=== PATIENT | male | born 1985 | race Caucasian/White ===

== ENCOUNTER 2022-07-01 06:01 | Emergency (ER) | payer SELFPAY ==
[~2022-07-01] VITALS: Ht 167.6 cm; Wt 66.0 kg
[2022-07-01] MEDS ORDERED: ACETAMINOPHEN 325MG TABLET PO ONE (06:30)
[2022-07-01] MEDS ORDERED: TOPUD PO (08:31)
[2022-07-01] MEDS ORDERED: AMOX1TAB16 PO (08:31)
[2022-07-01] MEDS ORDERED: LIDOCAINE HCL/PF 1% 10 MG/ML 5ML VIAL INFIL ONE (08:45)
[2022-07-01] MEDS ORDERED: TETANUS, DIPHTHERIA, PERTUSSIS VAC/PF 0.5ML (>10YR OLD) IM ONE (10:15)
[2022-07-01 11:30] VITALS: BP 138/72
== END 2022-07-01 10:45 | disposition home or self-care (01) ==
LOC: ER 06:31
DX: S01.21XA Laceration without foreign body of nose, initial encounter (principal); S41.102A Unspecified open wound of left upper arm, initial encounter; Y08.89XA Assault by other specified means, initial encounter; Y93.9 Activity, unspecified; Y92.9 Unspecified place or not applicable
CPT/HCPCS: 12013; 70450; 70486; 73060; 90471; 90715; 99284; J3490